=== PATIENT | female | born 1935 | race Caucasian/White ===

== ENCOUNTER 2022-05-04 23:36 | Inpatient (IN) | payer MEDICARE, OTHER ==
[~2022-05-04] VITALS: Ht 162.6 cm; Wt 40.8 kg
--- NOTE | 2022-05-04 23:40 | NUR ---
RADHA CAGE FROM [facility] C/O SOB. PATIENT TAKEN TO ER BED 5, ER MD AT BEDSIDE. RT AT BEDSIDE.
--- NOTE | 2022-05-04 23:46 | NUR ---
MEDS PUSHED: ETOMIDATE 20 SUCCINATE [address] @[address]
--- NOTE | 2022-05-04 23:48 | NUR ---
PATIENT INTUBATED: ETT 7.5 22CM AT THE LIP
--- NOTE | 2022-05-04 23:55 | NUR ---
NGT TO L NARE AT 50CM; POSITIVE ASPIRATION AND AUSCULTATION PLACEMENT
[2022-05-05] VITALS (25 sets, daily range): BP systolic 73–179; BP diastolic 15–91
[2022-05-05] MEDS ORDERED: IV NS 0.9% 1,000 ML BAG IV ONE
[2022-05-05] MEDS ORDERED: PIPERACILLIN /TAZOBACTAM 3.375 G in IV D5W 50 ML IV ONE ×2
[2022-05-05] MEDS ORDERED: VANCOMYCIN 1 GM in IV D5W 250 ML IV ONE ×2
--- NOTE | 2022-05-05 | NUR ---
PT ON VENT SETTINGS; TOLERATING AT 100% AC VC FIO2 100% VT 500 RR 18 I:E 1:2
--- NOTE | 2022-05-05 | NUR ---
WARREN OROURKE AT PT'S BEDSODE
--- NOTE | 2022-05-05 00:03 | NUR ---
URINE COLLECTED AND SENT TO LAB
--- NOTE | 2022-05-05 00:03 | NUR ---
COVID SWAB DONE AND SENT TO LAB
[2022-05-05] MEDS ORDERED: VANCOMYCIN 1 GM VIAL ONE (00:04)
[2022-05-05] MEDS ORDERED: PIPERACILLIN /TAZOBACTAM 3.375 G VIAL IV ONE (00:04)
--- NOTE | 2022-05-05 00:05 | NUR ---
BLOOD COLLECTED AND SENT TO LAB
--- NOTE | 2022-05-05 00:08 | NUR ---
RT pt intubated with ett 7.5, 22@gum. vent settings AC 18 500 100%. ett patent and secure. vent plugged in to red outlet. alarms on and audible. ambu bag at bedside. small pickard secretions suctioned via ett. lung sounds clear on left, diminished on right. no sob, no resp distress noted.
--- NOTE | 2022-05-05 00:53 | NUR ---
RT AT PT'S BEDSIDE Addendum: 05/05/22 at 0053 by JIROLANDOP RT AT PT'S BEDSIDE FOR ABG
[2022-05-05 00:54] LABS: BASOPHILS % (AUTO) 0.1 % (0.0-2.0); HEMATOCRIT 30 % (33-45); HEMOGLOBIN 9.3 g/dL (11.5-14.8); LYMPHOCYTES # (AUTO) 2.6 K/uL (0.8-4.8); LYMPHOCYTES % (AUTO) 12.9 % (20.0-44.0); MEAN CORPUSCULAR HGB CONC 31 g/dl (31.0-36.0); MEAN CORPUSCULAR VOLUME 93 fL (82-100); MONOCYTES # (AUTO) 0.3 K/uL (0.1-1.30); MONOCYTES % (AUTO) 1.8 % (2.0-12.0); NEUTROPHILS # (AUTO) 16.9 K/uL (1.8-8.9); NEUTROPHILS % (AUTO) 85.2 % (43.0-81.0); PLATELET COUNT (AUTO) 337 K/uL (150-450); RED BLOOD CELL COUNT(AUTO) 3.18 MIL/uL (4.0-5.2); WHITE BLOOD COUNT (AUTO) 19.8 K/uL (4.3-11.0)
--- NOTE | 2022-05-05 01:15 | NUR ---
PT TAKEN TO CT WITH RT
[2022-05-05 01:18] LABS: ALANINE AMINOTRANSFERASE 16 U/L (12-78); ALBUMIN 1.5 g/dL (3.4-5.0); ALKALINE PHOSPHATASE 121 U/L (46-116); ASPARTATE AMINOTRANSFERASE 30 U/L (15-37); BILIRUBIN,DIRECT 0.2 mg/dL (0.0-0.2); BILIRUBIN,TOTAL 0.4 mg/dL (0.2-1.0); CALCIUM, SERUM 7.5 mg/dL (8.5-10.1); CARBON DIOXIDE 19 mmol/L (21-32); CHLORIDE 102 mmol/L (98-107); CREATININE 2.4 mg/dL (0.6-1.3); GLUCOSE 289 mg/dL (74-106); SODIUM SERUM 138 mmol/L (136-145); TOTAL PROTEIN, SERUM 4.9 g/dL (6.4-8.2); UREA NITROGEN, BLOOD 33 mg/dL (7-18)
[2022-05-05 01:19] LABS: ABG BASE EXCESS -8.1 mmol/L; ABG PCO2 35.7 mmHg (35.0-45.0); ABG PH 7.307 (7.350-7.450); ABG PO2 79.8 mmHg (75.0-100.0); COHb 0.3 % (0.5-1.5); MetHb 0.2 % (0.0-1.5); O2Hb 93.9 % (94.0-97.0); SITE, ABG Left Brachial; VENT MODE, BG AC 18 500 100%
--- NOTE | 2022-05-05 01:23 | NUR ---
UPDATED LILIANA (SON) [phone]
--- NOTE | 2022-05-05 01:33 | NUR ---
ROOM 253
[2022-05-05 01:36] LABS: POTASSIUM 2.6 mmol/L (3.5-5.1)
[2022-05-05 01:43] LABS: COLOR,URINE YELLOW (YELLOW)
--- NOTE | 2022-05-05 01:50 | NUR ---
RECTAL TEMP 95.0 F; WARMING MEASURES IN PLACE
[2022-05-05 01:51] LABS: BILIRUBIN,URINE NEGATIVE (NEGATIVE); PH,URINE 8.5 (5.0-8.0); PROTEIN,URINE 4+ mg/dl (NEGATIVE); UGLUCOSE NEGATIVE (NEGATIVE)
[2022-05-05 01:52] LABS: LEUKOCYTE ESTERASE ,URINE 3+ (NEGATIVE); NITRITE, URINE NEGATIVE (NEGATIVE); UROBILINOGEN,URINE 0.2 EU/dL (0.2)
[2022-05-05 01:57] LABS: RBC,URINE TOO NUMEROUS TO COUN /HPF (0-2); SQUAMOUS EPITHELIAL CELL,UR Few /HPF (None Seen); WBC,URINE TOO NUMEROUS TO COUN /HPF (0-3)
[2022-05-05 01:58] LABS: BACTERIA,URINE Few /HPF (None Seen)
--- NOTE | 2022-05-05 02:26 | NUR ---
REPORT GIVEN TO ED TUBE CLOSING MACHINE OPERATOR FOR MELONY
--- NOTE | 2022-05-05 02:35 | NUR ---
NGT TO L NARE ADVANCED 10 CM; 65CM AT THE NARE.
[2022-05-05] MEDS ORDERED: IV NS 0.9% 1,000 ML IV ONE ×2 (03:00)
[2022-05-05] MEDS ORDERED: POTASSIUM CL. PREMIX PERIPHER. 100 ML ONE (03:06)
--- NOTE | 2022-05-05 03:10 | NUR ---
DR. YANEZ SPOKE TO LILIANA (PT'S SON) AND CONFIRMED PT TO BE DNR; LILIANA VERBALIZED UNDERSTANDING
[2022-05-05] MEDS: POTASSIUM CL. PREMIX PERIPHER. 50 ML IV SCH ×4 (03:15→06:05)
[2022-05-05] MEDS ORDERED: LEVA0.6320 IH (03:41)
[2022-05-05] MEDS ORDERED: CLON0.1T PO (03:41)
[2022-05-05] MEDS ORDERED: CYAN10006 IM (03:41)
[2022-05-05] MEDS ORDERED: ACET325T53 PO (03:41)
[2022-05-05] MEDS ORDERED: AMIN30LI2 PO (03:41)
[2022-05-05] MEDS ORDERED: DONE5TAB34 PO (03:41)
[2022-05-05] MEDS ORDERED: BISA10SU11 RC (03:41)
[2022-05-05] MEDS ORDERED: INSU100V39 SQ (03:41)
[2022-05-05] MEDS ORDERED: ESCI20TA PO (03:41)
[2022-05-05] MEDS ORDERED: TRIA15OI9 TP (03:41)
[2022-05-05] MEDS ORDERED: MULT-213 PO (03:41)
[2022-05-05] MEDS ORDERED: HYDR100T27 PO (03:41)
[2022-05-05] MEDS ORDERED: ACET-2605 PO (03:41)
[2022-05-05] MEDS ORDERED: MEGE40TA7 PO (03:41)
[2022-05-05] MEDS ORDERED: NIFE-35 PO (03:41)
[2022-05-05] MEDS ORDERED: DOCU100C36 PO (03:41)
[2022-05-05] MEDS ORDERED: VIT1CAPS44 PO (03:41)
[2022-05-05] MEDS ORDERED: ASPI-1169 PO (03:41)
[2022-05-05] MEDS ORDERED: ICOS1CAP PO (03:41)
[2022-05-05] MEDS ORDERED: IPRA0.2S9 IH (03:41)
[2022-05-05] MEDS ORDERED: SEVE800T8 PO (03:41)
[2022-05-05] MEDS ORDERED: ATOR20TA PO (03:41)
[2022-05-05] MEDS ORDERED: ASCO500C18 PO (03:41)
[2022-05-05] MEDS ORDERED: ERGO500040 PO (03:41)
[2022-05-05] MEDS ORDERED: SENN-261 PO (03:41)
[2022-05-05] MEDS ORDERED: GUAI600T31 PO (03:41)
[2022-05-05] MEDS ORDERED: VIT1TABL46 PO (03:41)
[2022-05-05] MEDS ORDERED: ZINC220C6 PO (03:41)
--- NOTE | 2022-05-05 04:16 | NUR ---
LACTIC ACID 3.5; DR. RENATA WISE AWARE
--- NOTE | 2022-05-05 04:26 | NUR ---
MINNIE COMMITTEE MEMBER AT PT'S BEDSIDE
--- NOTE | 2022-05-05 04:52 | NUR ---
PT TRANSFERRED TO ICU 253 VIA ACLS PROTOCOL WITH RT. PT TOLERATED TRANSFER WELL.
[2022-05-05] MEDS ORDERED: Z GUARD REMEDY 4 OZ OINT TP PRN (05:00)
[2022-05-05] MEDS ORDERED: ACETAMINOPHEN 650 MG/SUPP.RECT RC PRN (05:00)
[2022-05-05] MEDS: PANTOPRAZOLE 40 MG VIAL IV SCH ×3 (05:23→20:11)
[2022-05-05] MEDS: PROPOFOL 100 ML IV PRN ×2 (05:25→20:13)
[2022-05-05] MEDS: IV NS 0.9% 1,000 ML IV PRN ×2 (05:26→20:15)
[2022-05-05 05:35] LABS: ABG BASE EXCESS -2.6 mmol/L; ABG OXYGEN SATURATION 96.5 % (92.0-98.5); ABG PCO2 33.3 mmHg (35.0-45.0); ABG PH 7.423 (7.350-7.450); ABG PO2 92.3 mmHg (75.0-100.0); AaDO2 587.4 mmHg; COHb 0.1 % (0.5-1.5); MetHb 0.1 % (0.0-1.5); O2Hb 96.3 % (94.0-97.0); SITE, ABG Right Radial
--- NOTE | 2022-05-05 05:46 | NUR ---
ABG DONE. METER CHANGES RECORDS CLERK ED NOTIFIED WITH THE RESULT.
[2022-05-05 05:52] LABS: BASOPHILS % (AUTO) 0.2 % (0.0-2.0); HEMATOCRIT 27 % (33-45); HEMOGLOBIN 8.5 g/dL (11.5-14.8); LYMPHOCYTES # (AUTO) 0.2 K/uL (0.8-4.8); LYMPHOCYTES % (AUTO) 3.4 % (20.0-44.0); MEAN CORPUSCULAR HGB CONC 31 g/dl (31.0-36.0); MEAN CORPUSCULAR VOLUME 93 fL (82-100); MONOCYTES # (AUTO) 0.2 K/uL (0.1-1.30); MONOCYTES % (AUTO) 2.4 % (2.0-12.0); NEUTROPHILS # (AUTO) 6.3 K/uL (1.8-8.9); PLATELET COUNT (AUTO) 225 K/uL (150-450); RED BLOOD CELL COUNT(AUTO) 2.92 MIL/uL (4.0-5.2); WHITE BLOOD COUNT (AUTO) 6.7 K/uL (4.3-11.0)
[2022-05-05 06:06] LABS: CHOLESTEROL 133 mg/dL (<200); HDL CHOLESTEROL 28 mg/dL (40-60); LDL 84 mg/dL (0-99); TRIGLYCERIDES 94 mg/dL (30-150)
[2022-05-05] MEDS: PIPERACILLIN /TAZOBACTAM 2.25 G in IV D5W 50 ML IV SCH ×3 (07:58→23:14)
--- NOTE | 2022-05-05 08:00 | NUR ---
DUCT LAYER HELPER RECEIVED PT SEDATED ON DIPRIVAN DRIP. ETT INTACT, POSITION CHECKED BY XRAY. NGT CONNECTED TO LIS DRAINING SMALL AMOUNT CLEAR BROWNISH GASTRIC CONTENTS. CLOUDY URINE SEEN IN COLE BAG. BAG CHANGED TO URINEMETER FOR I&O. MIDLINE INSERTED IN RIGHT UPPER ARM. IV'S TRANSFERRED TO MIDLINE. SUCTIONED. ORAL CARE DONE. REPOSITIONED
[2022-05-05 08:44] LABS: CALCIUM, SERUM 7.6 mg/dL (8.5-10.1); CARBON DIOXIDE 21 mmol/L (21-32); CHLORIDE 105 mmol/L (98-107); GLUCOSE 217 mg/dL (74-106); MAGNESIUM 1.8 mg/dL (1.8-2.4); PHOSPHORUS 1.2 mg/dL (2.5-4.9); POTASSIUM 3.4 mmol/L (3.5-5.1); SODIUM SERUM 138 mmol/L (136-145); UREA NITROGEN, BLOOD 36 mg/dL (7-18)
[2022-05-05] MEDS ORDERED: ASCO500T10 PO (09:09)
[2022-05-05] MEDS ORDERED: ACET-868 PO (09:09)
[2022-05-05] MEDS ORDERED: POVI3780 TP (09:09)
--- NOTE | 2022-05-05 10:00 | NUR ---
LADLE REPAIRER DIMINISHED URINE OUTPUT. DR CESAR AWARE. FIO2 TITRATED. SUCTIONED ETT
[2022-05-05 11:36] LABS: ABG OXYGEN SATURATION 98.9 % (92.0-98.5); ABG PCO2 25.2 mmHg (35.0-45.0); ABG PH 7.515 (7.350-7.450); ABG PO2 180.1 mmHg (75.0-100.0); AaDO2 363.8 mmHg; COHb 0.3 % (0.5-1.5); MetHb 0.3 % (0.0-1.5); O2Hb 98.3 % (94.0-97.0); SITE, ABG Left Radial
--- NOTE | 2022-05-05 12:00 | NUR ---
TEXTILE COLORIST DYER PT'S SON LILIANA CAME IN TO SEE PT. UPDATE GIVEN. HE REITERATED THAT HE AND HIS FAMILY WOULD NOT WANT CPR FOR PT BUT INTUBATION WAS OK. HE SAID THAT PT USUALLY HAS DIALYSIS TUSILVIA TODD SAT.
--- NOTE | 2022-05-05 14:00 | NUR ---
CHILDBIRTH AND INFANT CARE TEACHER SUCTIONED SMALL AMOUNT THICK KELLY SECRETIONS FROM ETT. SPO2 100% CONSITENTLY ON CURRENT VENT SETTINGS. ANURIC.
[2022-05-05] MEDS ORDERED: SUCCINYLCHOLINE CHLORIDE 20 MG/ML VIAL IV ONE (14:34)
[2022-05-05] MEDS ORDERED: ETOMIDATE 2 MG/ML VIAL IV ONE (14:34)
--- NOTE | 2022-05-05 16:00 | NUR ---
LABOR CREW SUPERVISOR WOUNDS PHOTOGRAPHED. DRESSINGS CHANGED. SPO2 100%. REPOSITIONED. REMAINS ANURIC.
--- NOTE | 2022-05-05 19:27 | NUR ---
PARTS WASHER OPENING NOTES RECEIVED REPORT FROM RN ARAMIS, PATIENT SEDATED. ON MECHANICAL VENTILATOR TOLERATING SETTINGS WELL, SR ON BEDSIDE RESTAURANT ATTENDANT. WITH NG TUBE ATTACHED TO SUCTION. COLE CATHETER WITH 0 OUTPUT IN PER AM SHIFT. IV ACCESS ON RIGHT UPPER ARM MIDLINE FLUSHING EASILY WITHOUT RESISTANCE RUNNING NS AT 75 ML/HR AND R HAND # 20G RUNNING DIPRIVAN AT 5 MCG/MIN. NOTED WITH B SOFT WRIST RESTRAINTS, SAFETY MEASURES IMPLEMENTED, WILL CONTINUE TO MONITOR THROUGHOUT THE SHIFT.
--- NOTE | 2022-05-05 20:10 | NUR ---
RECEIVED PT INTUBATED 7.5 ETT SECURED AT 22CM LIP LINE. NO REP DISTRESS NOTED. VENT SETTINGS AC 16, 450, 50%, +5. SX'D SMALL AMT OF THICK YELLOW SECRETIONS. VENT ALARMS SET AND AUDIBLE. AMBU BAG AT BEDSIDE. CONTINUE TO MONITOR. Addendum: 05/05/22 at 2012 by JINNY COTTRELL RT Amended: Links added.
--- NOTE | 2022-05-05 23:00 | NUR ---
RN NOTE BP STILL LOW AT 73/15 AFTER BOLUS OF NS 500 CC, TRANSMITTER OPERATOR MINNIE MADE AWARE, SHE THE ORDERED TO START LEVOPHED. ORDER TAKEN AND CARRIED OUT. WILL CONT TO MONITOR PT.
[2022-05-05] MEDS ORDERED: NOREPINEPHRINE 4 MG/4 ML AMPUL IV ONE (23:29)
[2022-05-05] MEDS ORDERED: IV NS 0.9% 500 ML IV ONE (23:30)
[2022-05-05] MEDS: NOREPINEPHRINE 8 MG in IV NS 0.9% 242 ML IV PRN (23:50)
[2022-05-06] VITALS (61 sets, daily range): BP systolic 87–156; BP diastolic 26–90
--- NOTE | 2022-05-06 06:50 | NUR ---
ETL APPLICATION DEVELOPER CLOSING NOTES PATIENT REMAINS IN BED SEDATED. ON MECHANICAL VENTILATOR TOLERATING SETTINGS WELL, SR ON BEDSIDE DRAWBRIDGE TENDER. WITH NG TUBE ATTACHED TO SUCTION. COLE CATHETER WITH 30 CC OUTPUT. IV ACCESS ON RIGHT UPPER ARM MIDLINE FLUSHING EASILY WITHOUT RESISTANCE RUNNING NS AT 75 ML/HR AND LEVOPHED AT 0.1 MCG/MIN AND R HAND # 20G RUNNING DIPRIVAN AT 5 MCG/MIN. ALL DUE MEDS GIVEN, KEPT DRY AND CLEAN, WITH B SOFT WRIST RESTRAINTS, SAFETY MEASURES IMPLEMENTED, WILL ENDORSE TO AM SHIFT NURSE FOR CONTINUITY OF .
--- NOTE | 2022-05-06 07:05 | NUR ---
AUTOMOTIVE CONSULTANT OPENING NOTE: RECEIVED PT. IN BED, INTUBATED AND SEDATED. MOVES EYELIDS WITH PAINFUL STIMULI. ETT - 7.5/23; AC - 16; VT - 450; FIO2 - 40%; PEEP - 5. NO S/S OF RESPIRATORY DISTRESS. BATCH OPERATOR READS NSR WITH HR OF 75 BPM AT THIS TIME. MULTIPLE SKIN ISSUES NOTED, WILL DO WOUND TREATMENT ORDERED. HAS NGT IN THE L NARE, ON LOW INTERMITTENT SUCTION, CLEAR GASTRIC RESIDUAL NOTED IN CONTAINER. ON COLE CATHETER, WITH YELLOW CLOUDY URINE WITH SEDIMENT NOTED. IV ACCESS ON KOSTAS MIDLINE, WITH NS RUNNING AT 75 ML/HR AND LEVOPHED RUNNING AT 0.1 MCG/KG/MIN; R WRIST #20G WITH DIPRIVAN RUNNING AT 5 MCG/KG/MIN. IV SITE DRESSINGS C/D/I WITH NO S/S OF INFILTRATION. PT. HAS CHARITY A/V SHUNT, THRILL AND BRUIT PRESENT. PT. ON SOFT BILATERAL WRIST RESTRAINTS, PALPABLE PULSES NOTED AND CAP REFILL < 3 SECS ON ALL EXTREMITIES. SAFETY MEASURES IN PLACE: BED IN LOWEST AND LOCKED POSITION, HOB ELEVATED AT 30 DEGREES, BED ALARM ON, CALL LIGHT WITHIN REACH, SIDE RAILS UP X2. WILL TURN AND REPOSITION IN BED AT LEAST Q2H. WILL CONTINUE TO MONITOR PT. FOR ANY CHANGES.
[2022-05-06] MEDS: PANTOPRAZOLE 40 MG VIAL IV SCH ×2 (08:27→20:28)
[2022-05-06] MEDS: PIPERACILLIN /TAZOBACTAM 2.25 G in IV D5W 50 ML IV SCH ×2 (08:27→15:37)
[2022-05-06 08:54] LABS: ABG BASE EXCESS -3.7 mmol/L; ABG OXYGEN SATURATION 96.7 % (92.0-98.5); ABG PCO2 29.5 mmHg (35.0-45.0); ABG PH 7.443 (7.350-7.450); ABG PO2 90.7 mmHg (75.0-100.0); AaDO2 160.6 mmHg; COHb 0.2 % (0.5-1.5); MetHb 0.2 % (0.0-1.5); O2Hb 96.3 % (94.0-97.0); SITE, ABG Right Radial; VENT MODE, BG AC 16 450 40% +5
[2022-05-06 09:06] LABS: EOSINOPHILS % (AUTO) 0.1 % (0.0-6.0); HEMATOCRIT 26 % (33-45); HEMOGLOBIN 8.1 g/dL (11.5-14.8); LYMPHOCYTES # (AUTO) 0.9 K/uL (0.8-4.8); LYMPHOCYTES % (AUTO) 5.6 % (20.0-44.0); MEAN CORPUSCULAR HGB CONC 32 g/dl (31.0-36.0); MEAN CORPUSCULAR VOLUME 92 fL (82-100); MONOCYTES # (AUTO) 0.4 K/uL (0.1-1.30); MONOCYTES % (AUTO) 2.7 % (2.0-12.0); NEUTROPHILS # (AUTO) 14.6 K/uL (1.8-8.9); NEUTROPHILS % (AUTO) 91.6 % (43.0-81.0); PLATELET COUNT (AUTO) 197 K/uL (150-450); WHITE BLOOD COUNT (AUTO) 15.9 K/uL (4.3-11.0)
[2022-05-06 09:19] LABS: CALCIUM, SERUM 7.1 mg/dL (8.5-10.1); CARBON DIOXIDE 19 mmol/L (21-32); CHLORIDE 108 mmol/L (98-107); CREATININE 2.2 mg/dL (0.6-1.3); GLUCOSE 150 mg/dL (74-106); MAGNESIUM 1.6 mg/dL (1.8-2.4); PHOSPHORUS 1.3 mg/dL (2.5-4.9); SODIUM SERUM 140 mmol/L (136-145); UREA NITROGEN, BLOOD 37 mg/dL (7-18)
[2022-05-06] MEDS: IV NS 0.9% 1,000 ML IV PRN (11:20)
[2022-05-06] MEDS ORDERED: GLUCERNA 1.2 1,000 ML BOTTLE NG PRN (12:00)
--- NOTE | 2022-05-06 13:45 | NUR ---
Venous pressure increased, Blood clots noted to both arterial and venous lines, unable to return blood due to clots, Alred at bedside and showed clots, Tasneem CAMPBELL at bedside and updated. Dr Nava made aware. HD treatment terminated, 15 mins on the machine only. VSS.
--- NOTE | 2022-05-06 13:50 | NUR ---
CHOCOLATE COATER NOTE: HEMODIALYSIS (HD) STARTED AT 1325. AT 1345 HD NURSE NOTICED BLOOD CLOT IN HD TUBING. HD STOPPED AND DR. MERCER NOTIFIED. NO HD OUTPUT NOTED. DR. MERCER ALSO NOTIFIED OF LOW POTASSIUM, PHOSPHOROUS AND MAGNESIUM. NO ORDERS YET.
[2022-05-06] MEDS ORDERED: VANCOMYCIN 1 GM in IV D5W 250 ML IV PRN (14:30)
--- NOTE | 2022-05-06 18:00 | NUR ---
FOUNDRY FINISHER NOTE: DR. MERCER FOLLOWED UP REGARDING POSSIBLE REPLACEMENT FOR POTASSIUM, PHOSPHORUS AND MAG. STILL WAITING FOR ORDERS. PHARMACY NOTIFIED.
--- NOTE | 2022-05-06 19:05 | NUR ---
AIRCRAFT CLEANING SUPERVISOR CLOSING NOTE: PT. REMAINS IN BED, INTUBATED, OFF SEDATION, OBTUNDED. OPENS EYES WITH PAINFUL STIMULI. ETT - 7.5/23; AC - 16; VT - 450; FIO2 - 40%; PEEP - 5. NO S/S OF RESPIRATORY DISTRESS. BATT PACKER READS NSR WITH HR OF 78 BPM AT THIS TIME. WOUND TREATMENT AND SKIN PRECAUTIONS DONE. NGT IN THE L NARE, WITH GLUCERNA RUNNING AT 10 ML/HR, NO GASTRIC RESIDUAL NOTED. COLE CATHETER DRAINED 100 ML YELLOW CLOUDY URINE WITH SEDIMENT THIS SHIFT. IV ACCESS ON KOSTAS MIDLINE, WITH NS RUNNING AT 75 ML/HR AND LEVOPHED RUNNING AT 0.08 MCG/KG/MIN; R WRIST #20G PATENT AND SALINE LOCKED. IV SITE DRESSINGS C/D/I WITH NO S/S OF INFILTRATION. PT. HAS CHARITY A/V SHUNT, HEMATOMA NOTED. PT. ON SOFT BILATERAL WRIST RESTRAINTS, PALPABLE PULSES NOTED AND CAP REFILL < 3 SECS ON ALL EXTREMITIES. SAFETY MEASURES MAINTAINED: BED IN LOWEST AND LOCKED POSITION, HOB ELEVATED AT 30 DEGREES, BED ALARM ON, CALL LIGHT WITHIN REACH, SIDE RAILS UP X2. TURNED AND REPOSITIONED IN BED AT LEAST Q2H. ENDORSED CONTINUITY OF CARE TO HEAT TREATER APPRENTICE RN.
[2022-05-06] MEDS ORDERED: MEROPENEM 500 MG in IV NS 0.9% 50 ML IV SCH (20:00)
--- NOTE | 2022-05-06 20:00 | NUR ---
HOME THERAPY CLINICIAN NOTE PT IN BED SEDATED. ON VENT/ETT INTACT AND PATENT.PT TOLERATING THE SETTINGS WELL. NO DISTRESS OR DISCOMFORT NOTED. NO S/S OF PAIN NOTED. ON TELE MONITOR SR HR 85. LT NARE WITH NGT FEEDING GLUCERNA AT 10 ML/HR, 0 ML RESIDUAL NOTED. BILATERAL SOFT WRIST RESTRAINTS ON. IVF NS INFUSING AT 75 ML/HR AND ALSO LEVOPHED INFUSING AT 0.08 MCG/KG/MIN NO S/S OF INFILTRATION NOTED AT KOSTAS MIDLINE. F/C INTACT AND PATENT DRAINING YELLOWISH COLOR URINE. REPOSITION HER FOR SKIN MANAGEMENT AND COMFORT. KEPT HER DRY AND CLEAN. ALL NEEDS ATTENDED. VSS. CONTINUE TO MONITOR HER.
[2022-05-06] MEDS ORDERED: MEROPENEM 500 MG VIAL IV ONE (20:24)
[2022-05-07] VITALS (34 sets, daily range): BP systolic 49–169; BP diastolic 36–76
[2022-05-07] MEDS: IV NS 0.9% 1,000 ML IV PRN (02:49)
--- NOTE | 2022-05-07 03:09 | NUR ---
CHEMIST FOOD NOTE PT IN STABLE CONDITION. ENDORSE TO CHARGE NURSE ED FOR CONTINUE TO CARE.
[2022-05-07] MEDS ORDERED: NOREPINEPHRINE 4 MG/4 ML AMPUL IV ONE (03:22)
[2022-05-07] MEDS: NOREPINEPHRINE 8 MG in IV NS 0.9% 242 ML IV PRN (03:29)
--- NOTE | 2022-05-07 06:09 | NUR ---
PULP MILL SUPERVISOR DNR CODE. VENT. SETTING REMAINS THE SAME. PT IS LEVOPHED DRIP /TITRATED/. PT IS ANURIC. NEEDS HEMODIALYSIS. VSS. AFEBRILE, SCOPE-SR. MEDICATED ORDERED. WILL CONTINUE CLOSE MONITORING.
--- NOTE | 2022-05-07 07:05 | NUR ---
FAMILY AND CONSUMER SCIENCES TEACHER OPENING NOTE: RECEIVED PT. IN BED, INTUBATED. OPENS EYES TO TACTILE AND PAINFUL STIMULI. UNABLE TO FOLLOW COMMANDS. ETT - 7.5/23; SIMV - 4; VT - 450; FIO2 - 30%; PEEP - 5; PS - 15. NO S/S OF RESPIRATORY DISTRESS. FOOD SERVICE CLERK READS NSR WITH HR OF 63 BPM AT THIS TIME. MULTIPLE SKIN ISSUES NOTED, WILL DO WOUND TREATMENT ORDERED. HAS NGT IN THE L NARE WITH GLUCERNA RUNNING AT 10 ML/HR, NO GASTRIC RESIDUAL NOTED. ON COLE CATHETER, WITH YELLOW CLOUDY URINE WITH SEDIMENT NOTED. IV ACCESS ON KOSTAS MIDLINE, WITH NS RUNNING AT 75 ML/HR AND LEVOPHED RUNNING AT 0.06 MCG/KG/MIN; R WRIST #20G PATENT AND SALINE LOCKED. IV SITE DRESSINGS C/D/I WITH NO S/S OF INFILTRATION. PT. HAS CHARITY A/V SHUNT, FAINT THRILL AND BRUIT PRESENT. PT. ON SOFT BILATERAL WRIST RESTRAINTS, PALPABLE PULSES NOTED AND CAP REFILL < 3 SECS ON ALL EXTREMITIES. SAFETY MEASURES IN PLACE: BED IN LOWEST AND LOCKED POSITION, HOB ELEVATED AT 30 DEGREES, BED ALARM ON, CALL LIGHT WITHIN REACH, SIDE RAILS UP X2. WILL TURN AND REPOSITION IN BED AT LEAST Q2H. WILL CONTINUE TO MONITOR PT. FOR ANY CHANGES.
[2022-05-07 08:12] LABS: BASOPHILS % (AUTO) 0.1 % (0.0-2.0); EOSINOPHILS % (AUTO) 0.6 % (0.0-6.0); HEMATOCRIT 23 % (33-45); HEMOGLOBIN 7.1 g/dL (11.5-14.8); LYMPHOCYTES % (AUTO) 8.1 % (20.0-44.0); MEAN CORPUSCULAR HGB CONC 32 g/dl (31.0-36.0); MEAN CORPUSCULAR VOLUME 91 fL (82-100); MONOCYTES # (AUTO) 0.3 K/uL (0.1-1.30); MONOCYTES % (AUTO) 2.6 % (2.0-12.0); NEUTROPHILS # (AUTO) 11.4 K/uL (1.8-8.9); NEUTROPHILS % (AUTO) 88.6 % (43.0-81.0); PLATELET COUNT (AUTO) 165 K/uL (150-450); RED BLOOD CELL COUNT(AUTO) 2.48 MIL/uL (4.0-5.2); WHITE BLOOD COUNT (AUTO) 12.8 K/uL (4.3-11.0)
[2022-05-07 08:24] LABS: CALCIUM, SERUM 7.7 mg/dL (8.5-10.1); CARBON DIOXIDE 23 mmol/L (21-32); CHLORIDE 110 mmol/L (98-107); CREATININE 2.5 mg/dL (0.6-1.3); GLUCOSE 213 mg/dL (74-106); SODIUM SERUM 144 mmol/L (136-145); UREA NITROGEN, BLOOD 43 mg/dL (7-18)
[2022-05-07 08:26] LABS: POTASSIUM 2.7 mmol/L (3.5-5.1)
[2022-05-07] MEDS: PANTOPRAZOLE 40 MG VIAL IV SCH (09:22)
[2022-05-07] MEDS ORDERED: DC PROPOFOL WHEN EXTUBATED XX PRN (10:00)
--- NOTE | 2022-05-07 10:45 | NUR ---
RT PER DR CESAR PATIENT WAS WEANED AND EXTUBATED. PLACED ON 2L NC FOR COMFORT MEASURES. FAMILY AT BEDSIDE. Addendum: 05/07/22 at 1210 by KARELY FULLER RT Amended: Links added.
--- NOTE | 2022-05-07 10:50 | NUR ---
ENGINEER CHIEF NOTE: PT.'S FAMILY SPOKE WITH DR. CESAR AND DECIDED TO PUT PT. ON COMFORT MEASURES ONLY. PT. EXTUBATED AND WAS PUT ON O2 VIA 2L/MIN NASAL CANNULA. VS STABLE AT THIS TIME. DISCONTINUED TUBE FEEDING, NGT REMOVED, AND ALL MEDS DISCONTINUED. WILL CONTINUE TO MONITOR PT. FOR ANY CHANGES AND WILL KEEP PT. COMFORTABLE POSSIBLE. FAMILY AT BEDSIDE.
[2022-05-07] MEDS ORDERED: MORPHINE SULFATE INJ 2 MG/ML DISP.SYRIN IV PRN (13:30)
--- NOTE | 2022-05-07 18:44 | NUR ---
BOAT HANDRECREATION PROGRAM SPECIALIST NOTE: PT. TRANSFERRED TO [facility] ROOM #320-2 VIA HOSPITAL BED. REPORT GIVEN TO [facility] LORNA OH AT BEDSIDE. PT. ON COMFORT MEASURES ONLY. PT. REMAINS OBTUNDED, OPENS EYES TO TACTILE AND PAINFUL STIMULI. UNABLE TO FOLLOW COMMANDS. ON O2 VIA 2L/MIN NASAL CANNULA. NO S/S OF RESPIRATORY DISTRESS AT THIS TIME. WOUND TREATMENT DONE. ON COLE CATHETER, DRAINED 225 ML YELLOW CLOUDY URINE WITH SEDIMENT THIS SHIFT. IV ACCESS ON KOSTAS MIDLINE AND R WRIST #20G, BOTH PATENT AND SALINE LOCKED. IV SITE DRESSINGS C/D/I WITH NO S/S OF INFILTRATION. PT. HAS CHARITY A/V SHUNT, FAINT THRILL AND BRUIT PRESENT. SAFETY MEASURES MAINTAINED: BED IN LOWEST AND LOCKED POSITION, HOB ELEVATED AT 30 DEGREES, BED ALARM ON, CALL LIGHT WITHIN REACH, SIDE RAILS UP X2. TURNED AND REPOSITIONED IN BED AT LEAST Q2H. PT. CHART HANDED OVER AT BEDSIDE. PT. HAS NO BELONGINGS. ENDORSED CONTINUITY OF CARE TO [facility] LORNA [place].
[2022-05-07] MEDS ORDERED: MEROPENEM 500 MG in IV NS 0.9% 50 ML IV SCH (20:00)
--- NOTE | 2022-05-07 20:00 | NUR ---
RN OPENING NOTES: RECEIVED PATIENT AWAKE IN BED, OPENS EYES, ACCOMPANIED, BY DAUGHTER, PLACED COMFORTABLY ON BED, HOB AT 30 DEGREE, BED IN LOW POSITION CALL LIGHTS WITHIN REACH, NO COMPLAIN OF PAIN AND DISCOMFORT AT THIS TIME, NO FACIAL GRIMACING WAS OBSERVED, NO SHORTNESS OF BREATH, ON O2 INHALATION AT 2LPM SATURATING WELL AT 94% PATIENT WAS TRANSFER FROM ICU ON COMFORT MEASURE ONLY, V/S ARE WITHIN NORMAL RANGE, KEPT CLEAN AND DRY ON CLOSE MONITORING,
--- NOTE | 2022-05-08 06:41 | NUR ---
MS RN CLOSING NOTES: PATIENT AWAKE IN BED, OPENS EYES, BED IN LOW POSITION CALL LIGHTS WITHIN REACH, NO COMPLAIN OF PAIN AND DISCOMFORT AT THIS TIME, NO FACIAL GRIMACING WAS OBSERVED, ON O2 INHALATION AT 2LPM SATURATING WELL, PATIENT ON COMFORT MEASURES REPOSITION, KEPT CLEAN AND DRY ALL NEEDS MET ENDORSE TO INCOMING SHIFT.
[2022-05-08 08:00] VITALS: BP 140/71
[2022-05-08 16:00] VITALS: BP 154/71
--- NOTE | 2022-05-08 19:00 | NUR ---
RN CLOSING NOTES: PATIENT AWAKE IN BED, OPENS EYES WITH TOUCH. BED IN LOW POSITION CALL LIGHTS WITHIN REACH, NO COMPLAIN OF PAIN AND DISCOMFORT DURING THE SHIFT, NO FACIAL GRIMACING WAS OBSERVED, ON O2 INHALATION AT 2LPM SATURATING WELL, PATIENT ON COMFORT MEASURES REPOSITION, KEPT CLEAN AND DRY ALL NEEDS MET ENDORSE TO THE INFRASTRUCTURE SOLUTIONS ARCHITECT NURSE.
--- NOTE | 2022-05-08 19:30 | NUR ---
MS RN OPENING NOTE RECEIVED PATIENT IN BED, WITH HOB ELEVATED, WITH EYES CLOSED, FAMILY AT BEDSIDE. AFEBRILE AND NOT IN ANY FORM OF ACUTE DISTRESS. ON O2 INHALATION VIA NASAL CANNULA AT 2LPM. WITH IV ACCESS ON KOSTAS MIDLINE-SL. WITH COLE CATHETER, INTACT AND DRAINING WELL WITH YELLOW URINE OUTPUT, NO HEMATURIA OR SEDIMENTS NOTED. PATIENT IS ON COMFORT CARE. SAFETY MEASURES IN PLACE. KEPT BED IN LOCKED AND IN LOW POSITION. SIDE RAILS UP X2. CALL LIGHT WITHIN EASY REACH.
[2022-05-08 20:00] VITALS: BP 139/75
--- NOTE | 2022-05-09 06:30 | NUR ---
MS RN CLOSING NOTE PATIENT IN BED, WITH HOB ELEVATED, WITH EYES CLOSED, RESPONDS TO TACTILE STIMULI. AFEBRILE AND NOT IN ANY FORM OF ACUTE DISTRESS. ON O2 INHALATION VIA NASAL CANNULA AT 2LPM. WITH IV ACCESS ON KOSTAS MIDLINE-SL. WITH COLE CATHETER, INTACT AND DRAINING WELL WITH YELLOW URINE OUTPUT, NO HEMATURIA OR SEDIMENTS NOTED. MAINTAINED ON COMFORT CARE. TURNED AND REPOSITIONED EVERY 2 HOURS TO PROMOTE PROPER CIRCULATION AND COMFORT. SAFETY MEASURES IN PLACE. KEPT BED IN LOCKED AND IN LOW POSITION. SIDE RAILS UP X2. CALL LIGHT WITHIN EASY REACH. ALL NURSING NEEDS ATTENDED. ENDORSED TO INCOMING SHIFT FOR CONTINUITY OF CARE.
--- NOTE | 2022-05-09 07:30 | NUR ---
MS RN OPENING NOTE Received patient from operations supervisor 2nd shift nurse; Patient in bed, eyes closed, on nasal cannula at 2lpm and with episodes of shallow breathing; With IV access on KOSTAS midline - SL, intact; With wall catheter draining with cynthia colored urine; Comfort care measures done; Monitored vital signs accurately; Safety measures done; bed in low position, locked, side rails x 3, call light within reach; Will continue to monitor throughout shift
[2022-05-09 08:00] VITALS: BP 118/46
[2022-05-09] MEDS ORDERED: MORPHINE SULFATE INJ 2 MG/ML DISP.SYRIN IV PRN (09:00)
[2022-05-09 16:00] VITALS: BP 111/73
--- NOTE | 2022-05-09 19:19 | NUR ---
MS RN CLOSING NOTE Patient in bed, eyes closed, on nasal cannula at 2lpm and with episodes of shallow breathing; With IV access on KOSTAS midline - SL, intact; With wall catheter draining with cynthia colored urine; Comfort care measures done; Monitored vital signs accurately; Safety measures done; bed in low position, locked, side rails x 3, call light within reach; Latest vital signs as follows; BP 111/73, HR 108 , RR 22, O2 sat 98; Will endorse to catheterization laboratory technician nurse for continuity of care.
--- NOTE | 2022-05-09 19:20 | NUR ---
MS RN OPENING NOTE RECEIVED PATIENT IN BED, WITH HOB ELEVATED, EYES CLOSED, WITH FAMILY AT BEDSIDE. AFEBRILE AND NOTED WITH SHALLOW BREATHING. ON O2 INHALATION VIA NASAL CANNULA AT 2LPM. WITH IV ACCESS ON KOSTAS MIDLINE-SL. WITH COLE CATHETER, INTACT AND DRAINING WELL WITH YELLOW URINE OUTPUT, NO HEMATURIA OR SEDIMENTS NOTED AT THIS TIME. PATIENT CONTINUOUS ON COMFORT CARE. SAFETY MEASURES IN PLACE. KEPT BED IN LOCKED AND IN LOW POSITION. SIDE RAILS UP X2. CALL LIGHT WITHIN EASY REACH.
[2022-05-09 20:00] VITALS: BP 87/29
--- NOTE | 2022-05-10 06:30 | NUR ---
MS RN CLOSING NOTE PATIENT IN BED, WITH HOB ELEVATED, EYES CLOSED, WITH DAUGHTER AT BEDSIDE. AFEBRILE AND NOTED WITH SHALLOW BREATHING. ON O2 INHALATION VIA NASAL CANNULA AT 2LPM. WITH IV ACCESS ON KOSTAS MIDLINE-SL. WITH COLE CATHETER, INTACT AND NOTED WITH MINIMAL URINE OUTPUT. MAINTAINED ON COMFORT CARE. SAFETY MEASURES IN PLACE. KEPT BED IN LOCKED AND IN LOW POSITION. SIDE RAILS UP X2. CALL LIGHT WITHIN EASY REACH. ALL NURSING NEEDS ATTENDED. ENDORSED TO INCOMING SHIFT FOR CONTINUITY OF CARE.
--- NOTE | 2022-05-10 07:52 | NUR ---
MS RN OPENING NOTE Received patient from assistant shift supervisor nurse; Patient in bed, eyes closed, on nasal cannula at 2lpm and with presence of shallow breathing; pale colored; With IV access on KOSTAS midline - SL, intact; With wall catheter draining with cynthia colored urine; Monitored vital signs accurately; Safety measures done; bed in low position, locked, side rails x 3, call light within reach; Will continue to monitor throughout shift
[2022-05-10 08:00] VITALS: BP 133/88
[2022-05-10 16:00] VITALS: BP 67/34
[2022-05-10] MEDS: MORPHINE SULFATE INJ 2 MG/ML DISP.SYRIN IV PRN ×3 (16:59→22:46)
--- NOTE | 2022-05-10 18:51 | NUR ---
MS RN CLOSING NOTE Patient in bed, eyes closed, on nasal cannula at 2lpm and with presence of shallow breathing and grunting; pale colored; With IV access on KOSTAS midline - SL, intact; With wall catheter draining with cynthia colored urine; Monitored vital signs accurately; Repositioned from time to time; Safety measures done; bed in low position, locked, side rails x 3, call light within reach; Will endorse to mold shifter nurse for continuity of care
--- NOTE | 2022-05-10 19:30 | NUR ---
MS RN OPENING NOTES RECEIVED PATIENT ASLEEP IN BED, DIFFICULT TO AROUSE. FAMILY ON BEDSIDE. BREATHING EVEN AND NON-LABORED, ON O2 AT 5LPM VIA [employer] CANULA. NOT IN APPARENT DISTRESS. NO S/S OF PAIN OR DISCOMFORT AT THIS TIME. HAS RIGHT UPPER ARM MIDLINE #18G AND RIGHT HAND IV ACCESS #20G, BOTH SALINE LOCKED. NO S/S OF INFILTRATION NOTED. HAS LEFT UPPER ARM AV FISTULA. HAS INDWELLING COLE CATHETER DRAINING GORAN URINE TO BAG BY GRAVITY. MULTIPLE SKIN DISCOLORATION AND BILATERAL UPPER EXTREMITIES EDEMA NOTED. SAFETY PRECAUTIONS IN PLACE: BED LOCKED AND IN LOW POSITION, SIDE RAILS UP X3, CALL LIGHT WITHIN REACH. WILL CONTINUE POC.
[2022-05-10 20:00] VITALS: BP 139/48
--- NOTE | 2022-05-10 20:41 | NUR ---
MS RN NOTES ADMINISTERED PRN MORPHINE ACCORDING TO PLAN OF CARE. FAMILY VERBALIZED UNDERSTANDING.
[2022-05-11] MEDS: MORPHINE SULFATE INJ 2 MG/ML DISP.SYRIN IV PRN ×5 (01:55→13:22)
--- NOTE | 2022-05-11 07:29 | NUR ---
MS RN CLOSING NOTES PATIENT IN BED ASLEEP, DAUGHTER ON BEDSIDE. NOT IN CARDIAC OR RESPIRATORY DISTRESS. ON O2 AT 3LPM VIA NASAL CANULA. AFEBRILE. STRONG CAROTID PULSE NOTED. RIGHT UPPER ARM MIDLINE #18G INTACT, PATENT AND FLUSHING. OFFLOADED AND REPOSITIONED. ALL DUE MEDS GIVEN AND NEEDS ATTENDED. SAFETY PRECAUTIONS MAINTAINED. WILL ENDORSE TO NEXT SHIFT FOR MELONY.
--- NOTE | 2022-05-11 07:30 | NUR ---
MS RN OPENING NOTE Received patient from night filler nurse; Patient in bed, eyes closed, on nasal cannula at 3lpm and with presence of shallow breathing; pale colored; With IV access on KOSTAS midline - SL, intact; With wall catheter draining with yellow colored urine; Safety measures done; bed in low position, locked, side rails x 3, call light within reach; Will continue to monitor throughout shift
--- NOTE | 2022-05-11 13:48 | NUR ---
RN NOTE CHECKED PATIENT WITH FAMILY AT THE BEDSIDE. PATIENT IS PALE AND BREATHING IS ALREADY VERY SHALLOW AT 5CPM/MIN. PATIENT ON O2 AT 3LPM. PROVIDED FAMILY TIME WITH THE PATIENT.
--- NOTE | 2022-05-11 13:56 | NUR ---
RN NOTE CHECKED PATIENT'S STATUS. NO PULSE AND NO BREATHING NOTED. FAMILY INFORMED AND AWARE AT BEDSIDE. FAMILY PROVIDED CONTACT NUMBER FOR MORTUARY THEY HAVE ARRANGED[phone][facility] WILL CALL THE MORTUARY.
--- NOTE | 2022-05-11 14:00 | NUR ---
RN NOTE REMOVED IV LINES, COLE CATHETER AND O2 CANNULA. POST-MORTEM CARE DONE. PLACED BODY ON POST-MORTEM BAG WITH IDENTIFICATION TAGS ON THE LEFT TOE, LEFT WRIST AND OUTER PART OF THE BAG. AWAITING FOR PICK-UP BY MORTUARY.
--- NOTE | 2022-05-11 14:05 | NUR ---
RN NOTE CALLED [facility] AND SPOKE WITH FRANSISCA. INFORMATION OF THE OF THE PATIENT PROVIDED. REFERRAL #: [id number].
--- NOTE | 2022-05-11 14:15 | NUR ---
RN NOTE CALLED [facility] AND WAS ABLE TO SPEAK TO ISACC. INFORMED ABOUT OF THE PATIENT AND STATED THEY WILL BE HEADING TO PICK-UP THE BODY OF THE PATIENT.
--- NOTE | 2022-05-11 16:48 | NUR ---
RN NOTE MORTUARY PERSONNEL FROM [facility] PICKED UP PATIENT'S BODY AND LEFT WITH PATIENT'S SON LILIANA.
== END 2022-05-11 13:56 | DRG 871 ==
LOC: ER 23:44 → ICU 05-05 01:39 → MED 05-07 18:51
PROVIDERS: ADMIT Nurse Practitioner Acute Care; ATTEND Nurse Practitioner Acute Care
PROC: 5A1945Z Respiratory Ventilation, 24-96 Consecutive Hours (ICD-10-PCS; principal; 2022-05-05)
PROC: 0BH18EZ Insertion of Endotracheal Airway into Trachea, Via Natural or Artificial Opening Endoscopic (ICD-10-PCS; 2022-05-05)
PROC: 05HB33Z Insertion of Infusion Device into Right Basilic Vein, Percutaneous Approach (ICD-10-PCS; 2022-05-05)
PROC: 5A1D70Z Performance of Urinary Filtration, Intermittent, Less than 6 Hours Per Day (ICD-10-PCS; 2022-05-06)
DX: A41.9 Sepsis, unspecified organism (principal); E43 Unspecified severe protein-calorie malnutrition; J69.0 Pneumonitis due to inhalation of food and vomit; J96.01 Acute respiratory failure with hypoxia; N18.6 End stage renal disease; R65.21 Severe sepsis with septic shock; N39.0 Urinary tract infection, site not specified; F03.93 Unspecified dementia, unspecified severity, with mood disturbance; I12.0 Hypertensive chronic kidney disease with stage 5 chronic kidney disease or end stage renal disease; J98.11 Atelectasis; R64 Cachexia; Z51.5 Encounter for palliative care; Z66 Do not resuscitate; D64.9 Anemia, unspecified; D69.6 Thrombocytopenia, unspecified; E11.22 Type 2 diabetes mellitus with diabetic chronic kidney disease; E78.5 Hyperlipidemia, unspecified; E87.6 Hypokalemia; E88.09 Other disorders of plasma-protein metabolism, not elsewhere classified; I46.9 Cardiac arrest, cause unspecified; Z99.2 Dependence on renal dialysis; K21.9 Gastro-esophageal reflux disease without esophagitis; B96.89 Other specified bacterial agents as the cause of diseases classified elsewhere; Z20.822 Contact with and (suspected) exposure to COVID-19; K52.9 Noninfective gastroenteritis and colitis, unspecified; E27.9 Disorder of adrenal gland, unspecified; J98.09 Other diseases of bronchus, not elsewhere classified
CPT/HCPCS: 31720; 36410; 36415; 36600; 71045-TC; 80048-TC; 80061-TC; 80076-TC; 80202-TC; 81001; 82803-TC; 83605-TC; 83735-TC; 84100-TC; 84484-TC; 85025-TC; 85730-TC; 86706; 87040-TC; 87081-TC; 87086-TC; 87340; 90935-TC; 94002-TC; 94003-TC; 94760-TC; 94799-TC; C9113; C9803; G0378; J0330; J2185; J2270; J2543; J3370; J3480; J3490; J7030; J7040; J7050; J7060